=== PATIENT | female | born 2000 | race Caucasian/White ===

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

== ENCOUNTER → 2023-04-14 | Outpatient (REF) | payer BC ==
[~2023-04-14] MED LIST changes: +PREDNISONE50 MG PO
== END ==
LOC: ZCOL.LAB 17:37
DX: B36.9 Superficial mycosis, unspecified (principal)